=== PATIENT | female | born 1995 | race Caucasian/White ===

== ENCOUNTER 2021-03-28 19:05 | Emergency (ER) | payer MEDICAID, SELFPAY ==
[2021-03-28 19:29] VITALS: BP 125/76; PULSE 75; RESP 16; TEMP 36.9; O2SAT 98; BMI 20.1
[2021-03-28 19:59] LABS: Basophils # 0.1 K/mm3 (0-0.2); Basophils % 0.7 % (0.1-2.0); Eosinophils # 0.2 K/mm3 (0.0-0.4); Eosinophils % 2.5 % (0.1-12.0); Hematocrit 44.7 % (37.0-47.0); Hemoglobin 14.9 g/dL (12.2-16.2); Lymphocytes # 2.3 K/mm3 (0.7-4.5); Lymphocytes % 26.5 % (10-50); Mean Corpuscular HGB Conc 33.3 g/dL (31.8-35.4); Mean Corpuscular Hemoglobin 30.1 pg (27.0-31.2); Mean Corpuscular Volume 90.3 fl (81-99); Mean Platelet Volume 8.1 fl (7.4-10.4); Monocytes # 0.4 K/mm3 (0.1-1.0); Monocytes % 4.9 % (1.7-9.3); Neutrophils # 5.6 K/mm3 (1.8-7.8); Neutrophils % 65.4 % (37.0-80.0); Platelet Count 188 K/mm3 (142-424); Red Blood Count 4.95 M/mm3 (4.20-5.40); Red Cell Distribution Width 12.7 % (11.5-17.5); White Blood Count 8.5 K/mm3 (4.8-10.8)
--- NOTE | 2021-03-28 20:00 | HMH.EDUTC ---
[facility] [place] Disposition Clinical Impression: Decidual cast Disposition: Home, Self-Care Condition on Discharge: Good Instructions: Heavy Menstrual Bleeding, DI for Menorrhagia Additional Instructions: Folllow up with addiction therapist. I put in referral. Make sure you call and make an appointment because sometimes they do a transvaginal ultrasound after you shed a cast. Take tylenol or ibuprofen for pain GO TO THE ER FOR ANY WORSENING SYMPTOMS OR CONCERNS Referrals: Porsha Howard [Primary Care Provider] - Pete Gilmore MD [Staff Physician] - Time of Disposition: 20:41 Medical Decision Making - Medical Records Medical records reviewed: No: I reviewed the patient's medical records. - [place] Inquiry Pt receiving controlled substance: No Vital Signs: 03/28/21 19:29 03/28/21 20:29 Temperature 98.4 F 98 F Temperature Source Oral Pulse Rate 75 Pulse Rate [Left] 75 Respiratory Rate 16 18 Blood Pressure 122/81 Blood Pressure [Right Arm] 125/76 Blood Pressure Mean [Right Arm] 92 02 Sat by Pulse Oximetry 98 - Lab Data Lab Results 03/28/21 19:22: [facility] Negative 03/28/21 19:48: WBC 8.5, RBC 4.95, Hgb 14.9, Hct 44.7, MCV 90.3, MCH 30.1, MCHC 33.3, RDW 12.7, Plt Count 188, MPV 8.1, Neut % (Auto) 65.4, Lymph % (Auto) 26.5, [place] % (Auto) 4.9, Eos % (Auto) 2.5, Baso % (Auto) 0.7, Neut # (Auto) 5.6, Lymph # (Auto) 2.3, [place] # (Auto) 0.4, Eos # (Auto) 0.2, Baso # (Auto) 0.1 03/28/21 19:48: Serum HCG, Qual Negative Result diagrams: 03/28/21 19:48 [facility] [place] HPI - General Stated complaint: Pulled out Tampo and something came out with it Time Seen by Provider: 03/28/21 20:00 Mode of Arrival: Ambulatory Source of Information: Patient Limitations: No Limitations Description of Symptoms (Recalled from Triage Doc. by RN): pt states, pulled tampon out and something came out with it. she explains that it appeared to be some type of tissue attatched to it. HEENT Symptoms (Recalled from RN notes): No Resp Symptoms (Recalled from RN notes): No Skin Symptoms (Recalled from RN notes): No MS Symptoms (Recalled from RN notes): No Functional Status (Recalled from RN notes): na - History of Present Illness Provider Complaint: She states that she is currently on her period. When she changed her tampon earlier today she noted a large piece of tissue on the tampon. She has never had anything like this before. She also states that she was having abdominal cramps before this that were worse than her normal period cramps. - Related Data Allergies Allergy/AdvReac Type Severity Reaction Status Date / Time No Known Allergies Allergy Verified 03/28/21 19:33 - Worker's Comp Is this a Worker's Comp case?: No [facility] History - Hepatitis A Screen Drug use history?: No High risk sexual behaviors?: No History of sexually transmitted infection?: No Currently employed?: No Childcare worker?: No Do you have indoor plumbing?: Yes Do you have electricity?: Yes Attestation statement:: This patient has been screened for Hepatitis A risk factors. I have reviewed the patient's past medical history: Yes ROS Obtained: Yes All systems reviewed & no additional complaints - Constitutional Constitutional: Denies chills, Denies fever(s) - Eyes Eyes: Denies eye discharge - ENT Ears, Nose, Mouth, and Throat: Denies dizziness, Denies otalgia, Denies sore throat - Gastrointestinal Gastrointestingal: Denies: abdominal pain, diarrhea, nausea, vomiting - Genitourinary Female Genitourinary: Denies dysuria, Reports heavy periods, Denies urinary frequency, Denies urinary incontinence, Denies urinary hesitancy, Denies urinary urgency - Musculoskeletal Musculoskeletal: Denies back pain - Integumentary/Breasts Skin/Breast: Denies redness, Denies rash, Denies wounds Physical Exam - General General appearance: alert, in no apparent distress - Head Head exam: atraumatic, normocephalic, normal inspection - Eye
[2021-03-28 20:12] LABS: HCG Qualitative, Serum Negative (Negative)
[2021-03-28 20:20] LABS: UTC Pregnancy Test, Urine Negative (Negative)
[2021-03-28 20:29] VITALS: BP 122/81; PULSE 75; RESP 18; TEMP 36.6
== END 2021-03-28 21:02 | disposition home or self-care (01) ==
LOC: ER 19:18 → UTC 19:21
PROVIDERS: Emergency Provider Nurse Practitioner Family; PCP Family Medicine
DX: N85.8 Other specified noninflammatory disorders of uterus (principal)
CPT/HCPCS: 81025; 84703; 85025; 99202; G0463